=== PATIENT | male | born 1990 | race Caucasian/White ===

== ENCOUNTER 2016-04-18 11:04 | Emergency (ER) | payer OTHER ==
[2016-04-18 11:39] LABS: Hematocrit 49 % (42-52); Mean Corpuscular HGB Conc 34 g/dl (31-36); Mean Corpuscular Hemoglobin 32 pg (27-31); Mean Corpuscular Volume 92 fL (80-94); Mean Platelet Volume 8 um3 (7.4-10.4); Red Blood Count 5.36 10^6/ul (4.0-5.4); Red Cell Distribution Width 13 % (10.5-15); White Blood Count 5.6 10^3/ul (3.5-10.8)
--- NOTE | 2016-04-18 11:46 | RAD ---
INDICATION: Chest pain COMPARISON: None TECHNIQUE: An AP portable view obtained at 1135 hours is submitted. FINDINGS: Bones/Soft Tissues: There are no acute bony findings. Cardiomediastinal: The cardiomediastinal silhouette is normal. Lungs: There are no infiltrates. There is no pneumothorax. Pleura: There are no pleural effusions. Other: None IMPRESSION: LUNGS CLEAR. NO PNEUMOTHORAX.
[2016-04-18 11:51] LABS: Albumin 4.9 g/dL (3.2-5.2); BUN/Creatinine Ratio 15.5 (8-20); Calcium 9.9 mg/dL (8.6-10.3); EGFR Non-African American 110.5 (>60); Globulin 2.6 g/dL (2-4); Potassium 3.9 mmol/L (3.5-5.0); Total Bilirubin 0.9 mg/dL (0.2-1.0); Total Protein 7.5 g/dL (6.4-8.9)
[2016-04-18] MEDS ORDERED: Iohexol 350* (CONTRAST) 500 ML MDV IV ONE (11:57)
[2016-04-18] MEDS ORDERED: Al Hydrox/Mg Hydrox/Simet LIQ* 30 ML UDC PO ONE (12:19)
[2016-04-18] MEDS ORDERED: Lidocaine 2% VISCOUS* 15 ML UDC PO ONE (12:19)
--- NOTE | 2016-04-18 12:33 | RAD ---
INDICATION: Chest pain. Short of breath. Evaluate for pulmonary embolus. COMPARISON: Chest x-ray same date TECHNIQUE: Axial source images were obtained from the thoracic inlet to the hemidiaphragms following administration of [address] angiographic technique was utilized. Coronal and sagittal reconstructed images were acquired. CHEST FINDINGS: Neck/thyroid: The visualized neck to include the thyroid appear normal. Chest wall: There are no acute abnormalities of the bony thorax or chest wall. There is minor kyphoscoliosis. There is no supraclavicular, infraclavicular, or axillary lymphadenopathy. Lungs : There are no pulmonary parenchymal masses or infiltrates. The pulmonary interstitium appears normal. There are no endobronchial lesions. Cardiomediastinal structures: There is no CT evidence of acute pulmonary embolic disease. The heart is normal in size. There is no pericardial effusion. There is no evidence of aortic aneurysm or dissection. There is no mediastinal or hilar adenopathy. The esophagus appears normal. Pleura : There are no pleural-based masses or effusions. Other: None. IMPRESSION: NO CT EVIDENCE OF ACUTE PULMONARY EMBOLIC DISEASE. LUNGS CLEAR.
[2016-04-18 13:06] VITALS: BP 129/59
--- NOTE | 2016-04-18 15:29 | ED ---
Lolis Vidal Anna, scribed for Noe Mitchell MD on 04/18/16 at 1121 . HPI Chest Pain - HPI Summary HPI Summary: Patient is a 25 y/o male coming [facility] presenting with sudden onset of constant dull, aching chest pain that began at 200 this morning. The patient was sleeping at the onset of pain and woke up because of the pain. The pain in still present and does not radiate. He describes the severity of the pain as 4/ 10. He has had some nausea. The pain is not alleviated by position. It is exacerbated by activity. Denies SOB, diaphoresis, edema fever rhino, sore throat , cough, melena, hematochezia, abdominal pain, or pain with urination. He finished a course of Cipro five days ago for a suspected UTI. He returned nine days ago form a three week trip in [place]. IF THERE IS ONE, PLEASE SEE DICTATION BY DR. MITCHELL FOR FURTHER INFORMATION. - History of Current Complaint Chief Complaint: EDChestPainROMI Time Seen by Provider: 04/18/16 11:17 Hx Obtained From: Patient Onset/Duration: Started Hours Ago, Still Present Timing: Constant, Lasting Hours Initial Severity: Moderate Current Severity: Moderate Pain Intensity: 4 Pain Scale Used: 0-10 Numeric Chest Pain Radiates: No Character: Dull/Aching Associated Signs and Symptoms: Positive: Nausea. Negative: Shortness of Breath , Diaphoresis, Abdominal Pain - Allergy/Home Medications Allergies/Adverse Reactions: Allergies Allergy/AdvReac Type Severity Reaction Status Date / Time No Known Allergies Allergy Verified 04/18/16 11:14 PMH/Surg Hx/FS Hx/Imm Hx Previously Healthy: Yes Cardiovascular History: Denies: Hx Coronary Artery Disease Infectious Disease History: No Infectious Disease History: Reports: Traveled Outside the [place] in Last 30 Days - Family History Known Family History: Positive: Other - Denies FHx Marfan syndrome, Jon- Danlos Syndrome Negative: Diabetes - Social History Occupation: Student Lives: With Family Alcohol Use: Occasionally Hx Substance Use: No Hx Tobacco Use: No Review of Systems Constitutional: Negative Eyes: Negative ENT: Negative Positive: Chest Pain Respiratory: Negative Positive: Nausea Genitourinary: Negative Musculoskeletal: Negative Skin: Negative Neurological: Negative Psychological: Normal All Other Systems Reviewed And Are Negative: Yes - Comments Additional Review of Systems Comments: IF THERE IS ONE, PLEASE SEE DICTATION BY DR. MITCHELL FOR FURTHER INFORMATION. Physical Exam - Summary Physical Exam Summary: GENERAL: Awake, alert, oriented, no acute distress, very pleasant, tall, thin HEENT: Head is normocephalipolc, atraumatic, anicteric sclera, clear conjunctiva , mucous membranes moist, no erythema, no discharge, no lesions, neck is supple , trachea is midline, no JVD CARDIAC: Regular rate and rhythm, S1, S2, no rub, no murmur, no gallop, 2+ radial and pedal pulses bilaterally RESPIRATORY: Clear to auscultation bilaterally with no rales, rhonchi, or wheezes, non-tender ABDOMEN: Bowel sounds positive, no bruit, soft, non-tender, no CVA tenderness EXTREMITIES: No edema, moving all extremities in a grossly normal manner SKIN: warm, dry NEUROLOGICAL: Mood is appropriate, moving all extremities in a grossly normal manner IF THERE IS ONE, PLEASE SEE DICTATION BY DR. MITCHELL FOR FURTHER INFORMATION. Triage Information Reviewed: Yes Vital Signs On Initial Exam: Initial Vitals Temp Pulse Resp BP Pulse Ox 98.3 F 80 15 147/75 100 04/18/16 11:08 04/18/16 11:08 04/18/16 11:08 04/18/16 11:08 04/18/16 11:08 Vital Signs Reviewed: Yes Diagnostics - Vital Signs Vital Signs Temp Pulse Resp BP Pulse Ox 04/18/16 11:08 98.3 F 80 15 147/75 100 - Laboratory Result Diagrams: 04/18/16 11:17 04/18/16 11:17 Lab Statement: Any lab studies that have been ordered have been reviewed, and results considered in the medical decision making process. - Radiology CXR Xray Interpretation: No Acute Changes Radiology Interpretation Completed By: Radiologist - Lungs clear. No PTX. - CT Chest CT CT Interpretation: No Acute Changes CT Interpretation Completed By: Radiologist - IMPRESSION: NO CT EVIDENCE OF ACUTE PULMONARY EMBOLIC DISEASE. LUNGS CLEAR. - EKG 11:14 Cardiac Rate: NL - 80 bpm EKG Rhythm: Sinus Rhythm EKG Interpretation: NSR, no acute ischemia Chest Pain Course/Dx - Diagnoses Provider Diagnoses: Chest pain Discharge - Discharge Plan Condition: Stable Disposition: HOME Patient Education Materials: Chest Pain (ED) Referrals: OBDULIO Ham [Primary Care Provider] - Additional Instructions: PLEASE RETURN TO THE EMERGENCY DEPARTMENT FOR NAUSEA, VOMITING, FEVER, PHOTOPHOBIA, CHEST PAIN, OR IF SYMPTOMS WORSEN. The documentation as recorded by the Lolis castellanos Anna accurately reflects the service I personally performed and the decisions made by , Noe Mitchell MD.
== END 2016-04-18 13:05 | disposition home or self-care (01) ==
LOC: ED 11:04
DX: R07.9 Chest pain, unspecified (principal)
CPT/HCPCS: 36415; 71010; 71275; 80053; 82550; 82553; 83605; 83874; 83880; 84484; 85025; 85610; 85730; 93005; 99283; A9270-GY; Q9967